=== PATIENT | male | born 1930 | race Hispanic/Latino ===

== ENCOUNTER 2020-01-14 08:17 | Observation (INO) | payer OTHER, MEDICARE ==
[2020-01-14] VITALS (21 sets, daily range): BP systolic 120–154; BP diastolic 58–79
[2020-01-14] MEDS ORDERED: INDOMETHACIN 50 MG SUPP.RECT RC SCH (10:45)
[2020-01-14] MEDS ORDERED: IOHEXOL-350 50ML VIAL IV ONE (10:50)
[2020-01-14] MEDS ORDERED: ZOSYN 3.375GM+NS 50ML 50 ML IV SCH (11:42)
[2020-01-14] MEDS ORDERED: GLUCAGON 1MG KIT 1 MG ML ONE (11:45)
[2020-01-14] MEDS ORDERED: MEPERIDINE-PF 25 MG/ML SYG ONE (12:52)
[2020-01-14] MEDS: ZOSYN 3.375GM+NS 50ML 50 ML IV SCH ×2 (14:15→21:00)
[2020-01-14] MEDS: SODIUM CHLORIDE 0.9% 1000ML 1,000 ML IV SCH (14:15)
[2020-01-14] MEDS ORDERED: ONDANSETRON HCL 4 MG/2 ML VIAL IVP PRN (14:15)
[2020-01-14] MEDS ORDERED: HYDRALAZINE HCL 20 MG/ML VIAL IV PRN (14:15)
[2020-01-14] MEDS ORDERED: GUAIFENESIN-DM 200/20 MG 10 ML PO PRN (14:45)
[2020-01-14] MEDS ORDERED: TAMS-1 PO (18:47)
[2020-01-14] MEDS ORDERED: TRIA1TAB3 PO (18:47)
[2020-01-14] MEDS ORDERED: AMLO1ORA PO (18:47)
[2020-01-14] MEDS ORDERED: VIT1TABL66 PO (18:47)
[2020-01-14] MEDS ORDERED: FOLI1TAB85 PO (18:47)
[2020-01-14] MEDS ORDERED: LISI40TA4 PO (18:47)
[2020-01-14] MEDS: FAMOTIDINE/PF 20 MG/2 ML VIAL IV SCH (21:00)
[2020-01-15] MEDS: SODIUM CHLORIDE 0.9% 1000ML 1,000 ML IV SCH (03:35)
[2020-01-15 03:58] VITALS: BP 108/66
--- NOTE | 2020-01-15 05:30 | NUR ---
ROUNDS UNEVENTFUL NIGHT. NO CHANGE IN PT CONDITION. PT RESTING IN BED, DOOR LEFT OPEN FOR CONTINUOUS MONITORING. CALL LIGHT WITHIN REACH.
[2020-01-15 05:38] LABS: BASOPHILS % (AUTO) 0.1 % (0.0-5.0); EOSINOPHILS % (AUTO) 0.1 % (0.0-8.0); HEMATOCRIT 37.7 % (42-54); LYMPHOCYTES % (AUTO) 2.4 % (21.0-51.0); MEAN CORPUSCULAR HEMOGLOBIN 28.7 pg (27.0-33.0); MEAN CORPUSCULAR HGB CONC 32.6 g/dL (32.0-36.0); MEAN CORPUSCULAR VOLUME 87.9 fL (79-99); MONOCYTES % (AUTO) 3.6 % (3.0-13.0); NEUTROPHILS % (AUTO) 93.5 % (40.0-77.0); PLATELET COUNT (AUTO) 64 K/uL (130-400); RED BLOOD CELL COUNT(AUTO) 4.29 MIL/uL (4.50-6.20); RED CELL DISTRIBUTION WIDTH 15.7 % (11.0-15.5); WHITE BLOOD COUNT (AUTO) 14.4 K/uL (4.8-10.8)
[2020-01-15 05:50] LABS: ALBUMIN 2.4 g/dL (3.5-5.0); CREATININE 1.5 mg/dL (0.5-1.5); POTASSIUM 4.4 mmol/L (3.5-5.1); TOTAL PROTEIN, SERUM 6.6 g/dL (6.0-8.3)
[2020-01-15 05:54] LABS: PLATELET MORPHOLOGY COMMENT DECREASED
[2020-01-15] MEDS: ZOSYN 3.375GM+NS 50ML 50 ML IV SCH ×2 (06:05→14:15)
[2020-01-15 08:00] VITALS: BP 144/74
[2020-01-15] MEDS: FAMOTIDINE/PF 20 MG/2 ML VIAL IV SCH (09:46)
--- NOTE | 2020-01-15 10:30 | NUR ---
PT'S CALLED ON THE PHONE AND INSISTED THAT SHE WANTS HIM OUT OF THE HOSPITAL; WHEN I MENTIONED TO HER NEED FOR ABX SHE STATED SHE WOULD GIVE HIM ABX AT HOME; I SPOKE TO DR MARC WHILE SHE WAS ON THE PHONE AND INFORMED HIM OF HER REQUEST; HE STATED TO CONSULT DR WHALEN AND ASK HIS OPINION ON HER Addendum: 01/15/20 at 1525 by REED MONTILLA RN RN ASK DR DAVIS OPINION ON IV ANTIBIOTICS.
[2020-01-15 12:00] VITALS: BP 142/73
[2020-01-15] MEDS ORDERED: AMOX-426 PO (14:11)
--- NOTE | 2020-01-15 15:25 | NUR ---
I HAVE COMPLETED ALL OF PT'S DISCHARGE PAPERS, I HAVE CALLED HIS DAUGHTER FRANCESCO AND EXPLAINED ALL THE INSTRUCTION TO HER ON CALLING THE FOLLOW UP MD'S ON FRIDAY TO MAKE APPOINTMENTS AND PICKING UP ANTIBIOTIC PERSCRIPTION AT [facility]; FRANCESCO STATED UNDERSTANDING OF ALL INSTRUCTIONS; PT PULLED OUT HIS OWN IV ACCESS EARLIER. SITE WNL; FAMILY IS ON WAY TO PICK PT UP.
--- NOTE | 2020-01-15 16:28 | NUR ---
PT HAS LEFT THE HOSPITAL, BUT HIS SON MARILEE CALLED BACK STATING THAT THE [facility] IS CLOSED TILL FRIDAY THAT HIS PERSCRIPTION HAS BEEN SENT TO; I SPOKE TO DR MARC AND HE WROTE A SCRIPT FOR ABX AND PT'S SON IS ON HIS WAY BACK TO HOSPITAL TO PICK IT UP.
[2020-05-25] MEDS ORDERED: URSO250T12 PO (07:25)
== END 2020-01-15 15:45 | disposition home or self-care (01) ==
LOC: DAH 08:17 → ENDO 08:17 → INTOOBSV 08:18 → ENDO 08:18 → DAHIP 08:18 → 3CH 14:30
PROVIDERS: ADMIT Internal Medicine; ATTEND Internal Medicine
DX: K80.30 Calculus of bile duct with cholangitis, unspecified, without obstruction (principal); I12.9 Hypertensive chronic kidney disease with stage 1 through stage 4 chronic kidney disease, or unspecified chronic kidney disease; N18.9 Chronic kidney disease, unspecified; K21.9 Gastro-esophageal reflux disease without esophagitis; M10.9 Gout, unspecified; E78.5 Hyperlipidemia, unspecified; Z86.73 Personal history of transient ischemic attack (TIA), and cerebral infarction without residual deficits
CPT/HCPCS: 36415; 43264; 43273; 43276; 74330; 80053; 82948; 85025; 96365; 96366 ×2; 96375; 96376; A4215; A4221; A4222; A4223; A4510; A4606; A4657; A4663; C1713; C1769; C1773; C1877; C2625; G0378 ×17; J1610; J2175; J2543 ×3; J3490 ×2; Q9967

== ENCOUNTER 2020-05-25 06:11 | Day surgery (SDC) | payer OTHER, MEDICARE ==
[2020-05-25] VITALS (8 sets, daily range): BP systolic 129–175; BP diastolic 65–92
[~2020-05-25] VITALS: Ht 167.6 cm; Wt 84.4 kg
[~2020-05-25 06:11] MED LIST: AMLO1ORA PO; AMOX-426 PO; FOLI1TAB85 PO; LISI40TA4 PO; TAMS-1 PO; TRIA1TAB3 PO; VIT1TABL66 PO
[2020-05-25] MEDS ORDERED: SODIUM CHLORIDE 0.9% 1000ML 1,000 ML IV ONE (06:28)
[2020-05-25] MEDS ORDERED: LEVO50TA11 PO (07:25)
[2020-05-25] MEDS ORDERED: URSO250T11 PO (07:25)
[2020-05-25] MEDS ORDERED: FINA5TAB41 PO (07:25)
[2020-05-25] MEDS ORDERED: IOHEXOL-350 50ML VIAL IV ONE (07:36)
[2020-05-25] MEDS ORDERED: INDOMETHACIN 50 MG SUPP.RECT RC SCH (07:45)
[2020-05-25] MEDS ORDERED: PROPOFOL 10 MG/ML 20ML VIAL IV ONE ×2 (07:55)
[2020-05-25] MEDS ORDERED: SUCCINYLCHOLINE 200MG/10ML SYR ONE (07:56)
== END 2020-05-25 11:00 | disposition home or self-care (01) ==
LOC: ENDO 06:11
PROVIDERS: ATTEND Internal Medicine Gastroenterology
DX: K80.30 Calculus of bile duct with cholangitis, unspecified, without obstruction (principal); K80.20 Calculus of gallbladder without cholecystitis without obstruction; I10 Essential (primary) hypertension; I73.9 Peripheral vascular disease, unspecified; K21.9 Gastro-esophageal reflux disease without esophagitis; R93.2 Abnormal findings on diagnostic imaging of liver and biliary tract; Z79.899 Other long term (current) drug therapy; Z20.828 Contact with and (suspected) exposure to other viral communicable diseases
CPT/HCPCS: 43262; 43264; 43275; 74328; A4215; A4221; A4222; A4223; A4606; A4657; A4663; C1769; C9803; J0330; J2704 ×2; J7030; Q9967; U0003; 74330